=== PATIENT | male | born 1970 ===

== ENCOUNTER 2023-06-03 17:37 | Emergency (ER) | payer OTHER ==
[~2023-06-03] VITALS: Ht 177.8 cm; Wt 104.3 kg
[2023-06-03] MEDS: SOLU-MEDROL 125MG VIAL ONE (17:56)
[2023-06-03] MEDS: SOLU-MEDROL 125MG VIAL IVP ONE (17:56)
[2023-06-03] MEDS ORDERED: EPIN0.3P2 IM (17:59)
[2023-06-03] MEDS ORDERED: DIPH50 PO (17:59)
[2023-06-03] MEDS ORDERED: METH4TAB3 PO (17:59)
[2023-06-03 18:20] VITALS: BP 112/60; PULSE 89; RESP 18; O2SAT 100
== END 2023-06-03 18:33 | disposition home or self-care (01) ==
LOC: EDH 17:37
DX: T63.441A Toxic effect of venom of bees, accidental (unintentional), initial encounter (principal); I10 Essential (primary) hypertension; Z98.890 Other specified postprocedural states; Y92.89 Other specified places as the place of occurrence of the external cause
CPT/HCPCS: 99283; 96374; J2919